=== PATIENT | female | born 1950 | race Caucasian/White ===

== ENCOUNTER 2023-09-18 06:09 | Day surgery (SDC) | payer OTHER, SELFPAY ==
[2023-09-07 10:24] LABS: Hematocrit 39.9 % (37.0-47.0); Hemoglobin 13.8 g/dL (12.0-16.0); Mean Corp Hgb Conc. 34.6 g/dL (33.0-37.0); Mean Corpuscular Hgb 29.7 pg (27.0-31.0); Mean Platelet Volume 10.4 fL (7.4-10.4); Platelet Count 291 10^3/uL (130-400); Red Blood Cell Count 4.64 10^6/uL (4.20-5.40); Red Cell Dist. Width 12.9 % (11.5-14.5); White Blood Cell Count 5.2 10^3/uL (4.8-10.8)
[2023-09-07 10:40] LABS: Blood Urea Nitrogen 26 mg/dl (7-17); Calcium 9.6 mg/dl (8.4-10.2); Carbon Dioxide 27 mmol/L (22-30); Chloride 103 mmol/L (98-107); Glucose 89 mg/dl (70-99); Potassium 4.6 mmol/L (3.5-5.1); Sodium 138 mmol/L (135-145); eGFR > 60.00
[2023-09-07 12:38] VITALS: BMI 29.4
[2023-09-18] VITALS (9 sets, daily range): BP systolic 110–143; BP diastolic 39–67; BMI 29.4
[2023-09-18] MEDS: NORMOSOL-R 1000 IV (07:11)
[2023-09-18] MEDS: Pyridium 200 MG PO (07:23)
== END 2023-09-18 11:10 | disposition home or self-care (01) ==
LOC: SDS 06:09
PROVIDERS: ATTENDING PHYSICIAN Obstetrics & Gynecology; FAMILY PHYSICIAN Family Medicine
DX: N39.3 Stress incontinence (female) (male) (principal); N36.41 Hypermobility of urethra
CPT/HCPCS: 57288; 36415; 80048; 85027; 86850; 86900; 86901; C1771; J1580

== ENCOUNTER 2023-09-21 23:22 | Emergency (ER) | payer OTHER, SELFPAY ==
[2023-09-21 23:30] VITALS: BP 156/62
--- NOTE | 2023-09-22 01:30 | ED.GENMED ---
History of Present Illness
<FLETCHER Hidalgo - Last Filed: 09/22/23 06:18>
General
Chief Complaint: Anal/Rectal Problem
Source: patient
Exam Limitations: none
Time Seen by Provider: 09/22/23 01:06
Nursing documentation reviewed up to this point in time: agreed with
Travel History
Have you had any contact with someone who has COVID-19?: No
Do you have any symptoms of coronavirus? Fever > 100 degrees, chills, cough, shortness of breath, sore throat, loss of taste or smell, muscle aches, or headache?: No
History of Present Illness
History of Present Illness:
This is a 73 year old female who presents to the ED c/o rectal pain and bleeding x 8 hours. Pt states she had a vaginal sling surgery 3 days ago. Around 5pm yesterday, she developed abrupt, cramping rectal pain that made her feel like she needed to
have a bowel movement. She only passed a small amount of nonbloody stool. Pt states she has continued to have intermittent, cramping rectal pain that comes and goes in waves, with only passage of a small amount of stool. Pt states around 4 hours
ago, she noticed streaks of blood in her underwear and pad. She also noticed blood when wiping her anal area. Pt took 5mg of oxycodone the day of the surgery, but has not had any since. She last took tylenol 1 day ago. She denies any fever, CP, SOB,
vomiting, lightheadedness, dizziness, dysuria, urinary retention or other changes in urination. Pt adds that she took senna the day of the surgery and the next day and she was able to have normal bowel movements with it.
Past History
<FLETCHER Hidalgo - Last Filed: 09/22/23 06:18>
Past History
ED Past Medical History: Arrthythmia (Atrial fibrillation), GERD and Hypothyroidism
ED Past Surgical History: Cardiac (Cardiac ablation)
Social History
Tobacco: Non-smoker
Alcohol: None
Drug: None
Personal:
Living: with family
Employment: Retired
Family History
Family History: Other (Noncontributory)
Review of Systems
<Geeta MelgarFLETCHER - Last Filed: 09/22/23 06:18>
Review of Systems
Allergies reviewed?: Yes
All Other Systems: ROS reviewed and negative except as documented in HPI and ROS
Constitutional: Reports no symptoms; Denies fever
EENT: Reports no symptoms
Respiratory: Reports no symptoms; Denies trouble breathing
Cardiac: Reports no symptoms; Denies chest pain
ABD/GI: Reports nausea and other (rectal pain and bleeding); Denies abdominal pain, vomiting, diarrhea or constipated
: Reports other (incisional pain and bruising); Denies dysuria or difficulty voiding
Musculoskeletal: Reports no symptoms
Skin: Reports no symptoms
Neurological: Reports no symptoms
Psychiatric: Reports no symptoms
Phy Exam
<Geeta GilesFLETCHER shahid - Last Filed: 09/22/23 06:18>
General Physical Exam
General Presentation: moderate distress
General age: appears stated age
General Skin: warm and dry
General Habitus: normal
General Mental: alert
General Hydration: appears well hydrated
ENT Exam
ENT Exam: neck supple, normocephalic and swallowing well
Cardiovascular Exam
Cardiovascular Exam: regular rate/rhythm, no edema, no murmur and normal peripheral pulses
Pulmonary Exam
Pulmonary Exam: lungs clear, no respiratory distress, no rales, no crackles, no rhonchi, no wheezing and no cough
Gastrointestinal Exam
Gastrointestinal Exam: normal bowel sounds, soft, non distended and tender (mild lower abdominal tenderness along surgical incision sites)
Rectal Exam: normal external exam, normal sphincter tone, no rectal mass, no stool and other (no lesions, masses, or lacerations along perianal area. There is no stool present in the rectum and there are no internal masses palpated. Streaks of blood
appreciated on underwear and pad.)
Guaiac Status: negative
Neurological Exam
Neurological Exam: alert and oriented x3
Musculoskeletal Exam
Musculoskeletal Exam: full ROM and no edema
Skin Exam
Skin Exam: normal color and warm/dry
Psychiatric Exam
Psychiatric Exam: normal mood/affect
Course
<FLETCHER Hidalgo - Last Filed: 09/22/23 06:18>
Orders/Labs/Results
Orders:
Orders
09/22/23 01:14
Bladder Scan- Treatment ONCE
09/22/23 01:53
0.9% Sodium Chloride 1000 ml [Nss] 1,000 ml IV BOLUS
HYDROmorphone [Dilaudid] 0.25 mg IV NOW STA
Lidocaine 2% [Lidocaine Uro-Jet 2%] 1 syringe TOPICAL NOW STA
09/22/23 02:12
Complete Blood Count/With Diff Urgent
Comprehensive Metabolic Panel Urgent
Urinalysis Reflex To Culture Urgent
Date Specimen was Collected: 09/22/23
Time Specimen was Collected: 02:00
09/22/23 03:02
CT Abd/pelvis W Iv Cont Urgent
Comment:
Reason For Exam: lower abd/rectal pain, rectal bleeding.
09/22/23 06:07
HYDROmorphone [Dilaudid] 0.25 mg IV NOW STA
LevoFLOXacin [Levaquin] 500 mg PO NOW STA
Abnormal Lab Results
09/22/23
02:12
Hct 35.8 L %
(37.0-47.0)
Absolute Monos (auto) 0.7 H 10^3/uL
(0.1-0.6)
Lymphocytes % 19.7 L %
(20.5-51.1)
Chloride 108 H mmol/L
(98-107)
BUN 24 H mg/dl
(7-17)
Urine Ketones 1+ A
(Negative)
09/22/23 02:12
09/22/23 02:12
Vital Signs
Initial and Last Documented VS:
Initial Vital Signs
Temp Pulse Resp BP Pulse Ox
98.6 F 72 16 156/62 97
09/21/23 23:30 09/21/23 23:30 09/21/23 23:30 09/21/23 23:30 09/21/23 23:30
Last Documented Vital Signs
Temp Pulse Resp BP Pulse Ox
98.6 F 72 16 148/58 95
09/21/23 23:30 09/21/23 23:30 09/21/23 23:30 09/22/23 06:18 09/22/23 03:21
<Dayana Chavira, DO - Last Filed: 09/22/23 06:40>
Orders/Labs/Results
Orders:
Orders
09/22/23 01:14
Bladder Scan- Treatment ONCE
09/22/23 01:53
0.9% Sodium Chloride 1000 ml [Nss] 1,000 ml IV BOLUS
HYDROmorphone [Dilaudid] 0.25 mg IV NOW STA
Lidocaine 2% [Lidocaine Uro-Jet 2%] 1 syringe TOPICAL NOW STA
09/22/23 02:12
Complete Blood Count/With Diff Urgent
Comprehensive Metabolic Panel Urgent
Urinalysis Reflex To Culture Urgent
Date Specimen was Collected: 09/22/23
Time Specimen was Collected: 02:00
09/22/23 03:02
CT Abd/pelvis W Iv Cont Urgent
Comment:
Reason For Exam: lower abd/rectal pain, rectal bleeding.
09/22/23 06:07
HYDROmorphone [Dilaudid] 0.25 mg IV NOW STA
LevoFLOXacin [Levaquin] 500 mg PO NOW STA
Abnormal Lab Results
09/22/23
02:12
Hct 35.8 L %
(37.0-47.0)
Absolute Monos (auto) 0.7 H 10^3/uL
(0.1-0.6)
Lymphocytes % 19.7 L %
(20.5-51.1)
Chloride 108 H mmol/L
(98-107)
BUN 24 H mg/dl
(7-17)
Urine Ketones 1+ A
(Negative)
09/22/23 02:12
09/22/23 02:12
Vital Signs
Initial and Last Documented VS:
Initial Vital Signs
Temp Pulse Resp BP Pulse Ox
98.6 F 72 16 156/62 97
09/21/23 23:30 09/21/23 23:30 09/21/23 23:30 09/21/23 23:30 09/21/23 23:30
Last Documented Vital Signs
Temp Pulse Resp BP Pulse Ox
98.6 F 72 16 148/58 95
09/21/23 23:30 09/21/23 23:30 09/21/23 23:30 09/22/23 06:18 09/22/23 03:21
<FLETCHER Hidalgo - Last Filed: 09/22/23 06:18>
*Critical Care Note
Total Time (30-74mins, 75-104mins- exclusive of procedures): Not Applicable
<Dayana Chavira DO - Last Filed: 09/22/23 06:40>
*Radiology
Radiology exam reviewed: radiology read reviewed
*Pulse Oximetry
Patient hypoxic: no
ED Attending Note
<FLETCHER Hidalgo - Last Filed: 09/22/23 06:18>
-
Portions of this chart may have been created with voice recognition software.� Occasional wrong word or��sound alike� substitutions may have occurred due to the inherent limitations of voice recognition software.
<Dayana Chavira, DO - Last Filed: 09/22/23 06:40>
ED Attending Note
Patient seen and examined by attending physician: Yes
I performed the substantive portion of visit, reviewed & personally made and approve the management plan that is documented in note by myself or LUCIO.: Yes
I performed a history and physical exam of patient and discussed management with resident, I reviewed resident's note and agree with documented findings and plan of care.: Yes
ED Attending Note:
73-year-old woman who underwent vaginal sling procedure September 18 due to urinary stress incontinence. Has been feeling well postoperatively until tonight around 4:30 PM when she developed moderate suprapubic discomfort as well as significant
rectal pressure and pain. Rectal pain comes and goes in waves as spasms feeling the need to have a bowel movement. She has passed a few small soft bowel movements since 4:30 PM with no improvement in pain which continues to come in waves of spasms
of rectal pain. Lower abdominal pain has improved.
After passing a few soft small bowel movements she has noticed some scant mucoid blood streaked around stool as well as blood streaking on her pad and bright red blood when wiping.
She has not had a fever nor chills. No difficulty urinating and believes she is emptying her bladder well.
She has not taken anything for pain since yesterday morning.
GENERAL: 73-year-old woman appears her stated age, awake and alert, pleasant, appears in mild distress related to discomfort.
EYE: anicteric
NECK: Supple, nontender, no meningismus, no significant adenopathy.
ENT: oral mucosa is moist. No rhinorrhea.
CARDIAC: Regular rate and rhythm. no murmur.
LUNGS: Clear breath sounds bilaterally, no acute respiratory distress, no wheezes/rales/rhonchi
ABDOMEN: Soft, nondistended, there is dark purple ecchymosis suprapubic region, minimal tenderness suprapubic region but bladder is not palpably distended. No gross blood at anal sphincter nor vaginal introitus.
Rectal exam reveals no masses, nontender, no palpable stool, no gross blood on gloved finger but scant mucoid bright red blood on Hemoccult card which is heme positive.
NEUROLOGICAL: Alert and oriented x3, no focal neuro deficits. Gait is steady.
SKIN: Warm and dry, normal color, skin intact. No rash.
MUSCULOSKELETAL: No C/C/E. peripheral pulses are full and equal b/l. No palpable tenderness.
PSYCH: Normal and appropriate interaction.
Concern for postoperative pain, postoperative focal bleeding, other consideration is lower GI bleed, constipation.
Bladder is not palpably distended but will check post void bladder scan to assess for urinary retention.
Will check labs and urinalysis.
Will medicate for pain with a small dose of IV Dilaudid and trial Uro-Jet rectally for tenesmus.
Will plan for CT abdomen pelvis with IV contrast.
09/22/2023 0635 AM
Patient has been resting comfortably with marked improvement in pain after Uro-Jet rectally and a small dose of IV Dilaudid.
CAT scan shows acute colitis and proctitis without obstruction or perforation. No fluid collection. This could certainly be postsurgical changes but must consider bacterial in nature thus we will treat with a 1 week course of Levaquin. Patient
has allergy to penicillins and metronidazole.
Recommend bland, soft diet, clear liquids.
Continue pain medications as prescribed by surgeon.
I have sent a [employer] text to her surgeon, Dr. Zhang, thus far have not received return text but patient is eager to be discharged to home. She has had no further rectal bleeding.
Prompt follow-up with urologic surgeon on Sunday for recheck.
Return precautions discussed.
Discharge Plan
Departure
Patient Disposition: Home (Routine Discharge)
Date of Disposition: 09/22/23
Time of Disposition: 06:37
Patient with high blood pressure during this ER visit?: No
Condition: Good
Discharge Problem:
acute proctitis/colitis, Colitis with rectal bleeding
Instructions: Bloody Stools, Adult (DC), Colitis (DC)
Prescriptions:
New
levofloxacin 500 mg tablet
500 mg PO DAILY 6 Days Qty: 6 0RF
No Action
celecoxib 200 MG capsule
200 mg PO DAILYPRN PRN (Reason: pain)
multivitamin Tablet
1 tab PO DAILY
acetaminophen 500 mg Tablet
500 mg PO Q6H PRN (Reason: pain)
levothyroxine [Synthroid] 100 mcg Tablet
100 mcg PO QHS
azelastine 137 mcg (0.1 %) Aerosol,[place]
1 spray INTRANASAL BID PRN (Reason: Post nasal drip)
rosuvastatin 5 mg Tablet
5 mg PO DAILY
cholecalciferol (vitamin D3) [Vitamin D3] 50 mcg (2,000 unit) Capsule
50 mcg PO DAILY
coQ10 (ubiquinol) 200 mg Capsule
300 mg PO DAILY
Prolia 60 mg/mL Syringe
60 mg SC [id number]
Rx Instructions:
next injection 04/2023
Probiotic 10 billion cell Capsule
10,000 mmu cells PO DAILY
calcium carbonate 500 mg calcium (1,250 mg) Tablet
250 mg PO DAILY
omeprazole 20 mg Tablet,Delayed Release (Dr/Ec)
20 mg PO PRN PRN (Reason: GERD)
Referrals:
Dunia Bay MD [Family Provider] -
Emir Zhang MD [Active] - Call in 1-3 days for appt
Interventions
Interventions:
*Risk Screen - Suicide Last Done: 09/21/23 23:30
*General Assessment Last Done: 09/21/23 23:30
*Neglect/Abuse Screening Last Done: 09/21/23 23:30
ED- Fall Risk Assessment Last Done: 09/21/23 23:30
*ED COVID-19 Vaccine History Last Done: 09/21/23 23:30
ED-Skin Assessment Last Done: 09/22/23 01:00
[2023-09-22] MEDS: DILAUDID 0.25 MG IV ×2 (02:18→06:14)
[2023-09-22 02:19] LABS: % Basophils 0.3 % (0-2); % Eosinophils 0.9 % (0-6); % Immature Granulocytes 0.3 % (0-0.5); % Lymphocytes 19.7 % (20.5-51.1); % Monocytes 7.7 % (1.7-9.3); % Neutrophils 71.1 % (42.2-75.2); Absolute Eosinophils 0.1 10^3/uL (0-0.7); Absolute Lymphocytes 1.7 10^3/uL (1.2-3.4); Absolute Monocytes 0.7 10^3/uL (0.1-0.6); Absolute Neutrophils 6.2 10^3/uL (1.4-6.5); Hematocrit 35.8 % (37.0-47.0); Hemoglobin 12.6 g/dL (12.0-16.0); Mean Corp Hgb Conc. 35.2 g/dL (33.0-37.0); Mean Corpuscular Hgb 29.6 pg (27.0-31.0); Mean Corpuscular Volume 84.2 fL (81.0-99.0); Mean Platelet Volume 10.1 fL (7.4-10.4); Nucleated Red Blood Cells % 0 %; Platelet Count 290 10^3/uL (130-400); Red Blood Cell Count 4.25 10^6/uL (4.20-5.40); Red Cell Dist. Width 13.2 % (11.5-14.5); White Blood Cell Count 8.7 10^3/uL (4.8-10.8)
[2023-09-22] MEDS: LIDOCAINE URO-JET 2% 1 SYRINGE TOPICAL (02:19)
[2023-09-22] MEDS: NSS 1000 IV (02:19)
[2023-09-22 02:24] VITALS: BP 136/59
[2023-09-22 03:00] VITALS: BP 141/63
[2023-09-22 03:08] LABS: ALT (SGPT) 24 U/L (0-35); AST (SGOT) 30 U/L (14-36); Albumin 4.1 g/dl (3.5-5.0); Alkaline Phosphatase 71 U/L (38-126); Blood Urea Nitrogen 24 mg/dl (7-17); Calcium 9.5 mg/dl (8.4-10.2); Carbon Dioxide 24 mmol/L (22-30); Chloride 108 mmol/L (98-107); Glucose 92 mg/dl (70-99); Sodium 138 mmol/L (135-145); Total Bilirubin 0.7 mg/dl (0.2-1.3); Total Protein 6.7 g/dl (6.3-8.2); eGFR > 60.00
[2023-09-22 03:19] LABS: Urine Albumin Negative (Neg - Trace); Urine Bilirubin Negative (Negative); Urine Character Clear (Clear); Urine Color Yellow; Urine Glucose Negative (Negative); Urine Ketone 1+ (Negative); Urine Leukocyte Negative (Negative); Urine Nitrite Negative (Negative); Urine Occult Blood Negative (Negative); Urine Urobilinogen Negative (Neg - 1+)
[2023-09-22] MEDS: LEVAQUIN 500 MG PO (06:14)
[2023-09-22 06:18] VITALS: BP 148/58
== END 2023-09-22 06:59 | disposition home or self-care (01) ==
LOC: EMR 23:22
PROVIDERS: EMERGENCY PHYSICIAN Emergency Medicine; FAMILY PHYSICIAN Family Medicine
DX: K62.89 Other specified diseases of anus and rectum (principal); K52.9 Noninfective gastroenteritis and colitis, unspecified; K62.5 Hemorrhage of anus and rectum; I48.91 Unspecified atrial fibrillation; K21.9 Gastro-esophageal reflux disease without esophagitis; E03.9 Hypothyroidism, unspecified
CPT/HCPCS: 99284; 96374; 96376; 96361; 74177; 80053; 81003; 85025; Q9967

== ENCOUNTER → 2023-10-02 10:24 | Outpatient (REF) | payer OTHER, SELFPAY ==
[2023-10-02 12:23] LABS: C-Reactive Protein < 5.00 mg/L (0.0-10.00)
[2023-10-02 12:43] LABS: Erythrocyte Sed Rate 11 mm/hour (0-20)
[2023-10-03 15:54] LABS: tTG IgA Antibody 6.5 EU/ml (0-19); tTG IgG Antibody 16.3 EU/ml (0-19)
[2023-10-04 00:53] LABS: IgA 140 mg/dl (70-400)
[2023-10-04 18:29] LABS: Endomysial IgA Antibody Titer <1:10 (<1:10)
== END ==
LOC: HWLAB 10:24
PROVIDERS: ATTENDING PHYSICIAN Internal Medicine; FAMILY PHYSICIAN Family Medicine
DX: R19.5 Other fecal abnormalities (principal)
CPT/HCPCS: 36415; 82784; 83516; 85652; 86140; 86231

== ENCOUNTER → 2023-10-03 09:39 | Outpatient (REF) | payer OTHER, SELFPAY ==
[2023-10-07 00:42] LABS: Calprotectin, Fecal 10 ug/g (<=49)
== END ==
LOC: HWLAB 09:39
PROVIDERS: ATTENDING PHYSICIAN Internal Medicine; FAMILY PHYSICIAN Family Medicine
DX: R19.5 Other fecal abnormalities (principal)
CPT/HCPCS: 83993; 87045; 87046; 87427

== ENCOUNTER → 2023-10-09 13:27 | Outpatient (REF) | payer OTHER, SELFPAY | LOC: DHCBC MAIN 13:27 | PROVIDERS: ATTENDING PHYSICIAN Internal Medicine Cardiovascular Disease; FAMILY PHYSICIAN Family Medicine | DX: I49.5 Sick sinus syndrome (principal); Z95.0 Presence of cardiac pacemaker | CPT/HCPCS: 93306 ==

== ENCOUNTER → 2023-10-12 13:02 | Outpatient (REF) | payer OTHER, SELFPAY | LOC: HWRAD 13:02 | PROVIDERS: ATTENDING PHYSICIAN Registered Nurse Ambulatory Care | DX: M25.512 Pain in left shoulder (principal) | CPT/HCPCS: 73030 ==

== ENCOUNTER → 2023-11-29 10:06 | Outpatient (REF) | payer OTHER, SELFPAY ==
[2023-11-29 12:21] LABS: ALT (SGPT) 20 U/L (0-35); AST (SGOT) 30 U/L (14-36); Albumin 4.3 g/dl (3.5-5.0); Alkaline Phosphatase 71 U/L (38-126); Blood Urea Nitrogen 23 mg/dl (7-17); Calcium 9.8 mg/dl (8.4-10.2); Carbon Dioxide 26 mmol/L (22-30); Chloride 105 mmol/L (98-107); Glucose 94 mg/dl (70-99); HDL Cholesterol 82 mg/dl; LDL Cholesterol, Calculated 79 mg/dl; Potassium 4.4 mmol/L (3.5-5.1); Sodium 139 mmol/L (135-145); Total Bilirubin 0.7 mg/dl (0.2-1.3); Total Cholesterol 175 mg/dl (50-199); Total Protein 6.7 g/dl (6.3-8.2); Triglyceride 70 mg/dl (10-149); Very Low Density Lipoprotein 14 mg/dl (0-30); eGFR > 60.00
[2023-11-29 12:54] LABS: TSH 2.47 uIU/ml (0.47-4.68)
== END ==
LOC: HWLAB 10:06
PROVIDERS: ATTENDING PHYSICIAN Family Medicine
DX: E78.2 Mixed hyperlipidemia (principal); E03.9 Hypothyroidism, unspecified; G47.62 Sleep related leg cramps
CPT/HCPCS: 36415; 80053; 80061; 83735; 84443

== ENCOUNTER → 2023-12-26 12:52 | Outpatient (REF) | payer OTHER, SELFPAY | LOC: WDC 12:52 | PROVIDERS: ATTENDING PHYSICIAN Family Medicine | DX: G47.62 Sleep related leg cramps (principal); Z12.31 Encounter for screening mammogram for malignant neoplasm of breast | CPT/HCPCS: 77063; 77067; 93922; 93925 ==

== ENCOUNTER → 2024-01-25 06:19 | Day surgery (SDC) | payer OTHER, SELFPAY | LOC: GI 06:19 | PROVIDERS: ATTENDING PHYSICIAN Internal Medicine | DX: Z12.11 Encounter for screening for malignant neoplasm of colon (principal); D12.3 Benign neoplasm of transverse colon; D12.5 Benign neoplasm of sigmoid colon; K57.30 Diverticulosis of large intestine without perforation or abscess without bleeding; K64.9 Unspecified hemorrhoids; Z86.010 Personal history of colon polyps; Z98.0 Intestinal bypass and anastomosis status | CPT/HCPCS: 45380; 88305 ==

== ENCOUNTER → 2024-02-08 13:42 | Outpatient (REF) | payer OTHER, SELFPAY | LOC: MRI 13:42 | PROVIDERS: ATTENDING PHYSICIAN Orthopaedic Surgery; FAMILY PHYSICIAN Family Medicine | DX: M25.512 Pain in left shoulder (principal) | CPT/HCPCS: 71046; 73221 ==

== ENCOUNTER → 2024-05-05 09:07 | Outpatient (REF) | payer OTHER, SELFPAY ==
[2024-05-05 12:14] LABS: % Basophils 0.3 % (0-2); % Eosinophils 1.4 % (0-6); % Immature Granulocytes 0.5 % (0-0.5); % Lymphocytes 21.3 % (20.5-51.1); % Monocytes 9.1 % (1.7-9.3); % Neutrophils 67.4 % (42.2-75.2); Absolute Eosinophils 0.1 10^3/uL (0-0.7); Absolute Lymphocytes 1.4 10^3/uL (1.2-3.4); Absolute Monocytes 0.6 10^3/uL (0.1-0.6); Absolute Neutrophils 4.3 10^3/uL (1.4-6.5); Hematocrit 38.7 % (37.0-47.0); Mean Corp Hgb Conc. 33.6 g/dL (33.0-37.0); Mean Corpuscular Volume 86.4 fL (81.0-99.0); Mean Platelet Volume 10.5 fL (7.4-10.4); Nucleated Red Blood Cells % 0 %; Platelet Count 284 10^3/uL (130-400); Red Blood Cell Count 4.48 10^6/uL (4.20-5.40); Red Cell Dist. Width 13.1 % (11.5-14.5); White Blood Cell Count 6.4 10^3/uL (4.8-10.8)
[2024-05-05 12:28] LABS: ALT (SGPT) 40 U/L (0-35); AST (SGOT) 40 U/L (14-36); Albumin 4.2 g/dl (3.5-5.0); Alkaline Phosphatase 63 U/L (38-126); Blood Urea Nitrogen 23 mg/dl (7-17); Calcium 9.2 mg/dl (8.4-10.2); Carbon Dioxide 27 mmol/L (22-30); Chloride 104 mmol/L (98-107); Glucose 93 mg/dl (70-99); HDL Cholesterol 81 mg/dl; LDL Cholesterol, Calculated 110 mg/dl; Potassium 4.5 mmol/L (3.5-5.1); Sodium 142 mmol/L (135-145); Total Bilirubin 0.5 mg/dl (0.2-1.3); Total Cholesterol 208 mg/dl (50-199); Total Protein 6.5 g/dl (6.3-8.2); Triglyceride 88 mg/dl (10-149); Very Low Density Lipoprotein 17 mg/dl (0-30); eGFR > 60.00
[2024-05-05 12:53] LABS: TSH Reflex To Free T4 2.04 uIU/ml (0.47-4.68)
== END ==
LOC: HWLAB 09:07
PROVIDERS: ATTENDING PHYSICIAN Family Medicine
DX: E78.2 Mixed hyperlipidemia (principal); E03.9 Hypothyroidism, unspecified; R73.01 Impaired fasting glucose
CPT/HCPCS: 36415; 80053; 80061; 84443; 85025

== ENCOUNTER → 2024-05-16 13:05 | Outpatient (REF) | payer OTHER, SELFPAY | LOC: HWRAD 13:05 | PROVIDERS: ATTENDING PHYSICIAN Registered Nurse | DX: R20.2 Paresthesia of skin (principal) | CPT/HCPCS: 72040 ==

== ENCOUNTER → 2024-06-09 10:19 | Outpatient (REF) | payer OTHER, SELFPAY ==
[2024-06-09 12:30] LABS: ALT (SGPT) 25 U/L (0-35); AST (SGOT) 28 U/L (14-36); Albumin 4.5 g/dl (3.5-5.0); Alkaline Phosphatase 66 U/L (38-126); Blood Urea Nitrogen 20 mg/dl (7-17); Calcium 9.7 mg/dl (8.4-10.2); Carbon Dioxide 30 mmol/L (22-30); Chloride 100 mmol/L (98-107); Glucose 61 mg/dl (70-99); Potassium 4.6 mmol/L (3.5-5.1); Sodium 141 mmol/L (135-145); Total Bilirubin 0.6 mg/dl (0.2-1.3); Total Protein 6.6 g/dl (6.3-8.2); eGFR > 60.00
[2024-06-09 12:51] LABS: Vitamin D, 25-OH*** 47.1 ng/mL (30-80)
== END ==
LOC: HWLAB 10:19
PROVIDERS: ATTENDING PHYSICIAN Internal Medicine Rheumatology; FAMILY PHYSICIAN Family Medicine
DX: E55.9 Vitamin D deficiency, unspecified (principal); M81.0 Age-related osteoporosis without current pathological fracture
CPT/HCPCS: 36415; 80053; 82306

== ENCOUNTER 2024-07-10 06:23 | Day surgery (SDC) | payer OTHER, SELFPAY | END 2024-07-10 13:48 | disposition home or self-care (01) | LOC: GI 06:23 | PROVIDERS: ATTENDING PHYSICIAN Internal Medicine; FAMILY PHYSICIAN Family Medicine | DX: K29.60 Other gastritis without bleeding (principal); Q39.9 Congenital malformation of esophagus, unspecified; K44.9 Diaphragmatic hernia without obstruction or gangrene; K30 Functional dyspepsia; R14.0 Abdominal distension (gaseous); R68.81 Early satiety; R11.0 Nausea | CPT/HCPCS: 43239; 88305; 88342 ==

== ENCOUNTER → 2024-08-29 10:57 | Outpatient (REF) | payer OTHER, SELFPAY ==
[2024-08-29 13:02] LABS: ALT (SGPT) 27 U/L (0-35); AST (SGOT) 34 U/L (14-36); Albumin 4.1 g/dl (3.5-5.0); Alkaline Phosphatase 85 U/L (38-126); Blood Urea Nitrogen 30 mg/dl (7-17); Calcium 9.3 mg/dl (8.4-10.2); Carbon Dioxide 28 mmol/L (22-30); Chloride 102 mmol/L (98-107); Glucose 83 mg/dl (70-99); Potassium 4.7 mmol/L (3.5-5.1); Sodium 135 mmol/L (135-145); Total Bilirubin 0.6 mg/dl (0.2-1.3); Total Protein 6.7 g/dl (6.3-8.2); eGFR > 60.00
[2024-08-29 14:03] LABS: Folate 12.2 ng/ml (2.76-20); Vitamin B12 520 pg/ml (239-931)
== END ==
LOC: HWLAB 10:57
PROVIDERS: ATTENDING PHYSICIAN Family Medicine; FAMILY PHYSICIAN Family Medicine
DX: R74.01 Elevation of levels of liver transaminase levels (principal); R20.2 Paresthesia of skin
CPT/HCPCS: 36415; 80053; 82607; 82746

== ENCOUNTER → 2024-10-07 08:14 | Outpatient (REF) | payer OTHER, SELFPAY | LOC: HWRCS 08:14 | PROVIDERS: ATTENDING PHYSICIAN Internal Medicine Cardiovascular Disease; FAMILY PHYSICIAN Family Medicine | DX: I48.0 Paroxysmal atrial fibrillation (principal); Z95.0 Presence of cardiac pacemaker; R07.89 Other chest pain | CPT/HCPCS: 78452; 93017; A9500; J2785 ==

== ENCOUNTER → 2025-01-17 14:19 | Outpatient (REF) | payer OTHER, SELFPAY | LOC: WDC 14:19 | PROVIDERS: ATTENDING PHYSICIAN Family Medicine | DX: Z12.31 Encounter for screening mammogram for malignant neoplasm of breast (principal) | CPT/HCPCS: 77063; 77067 ==

== ENCOUNTER → 2025-03-27 08:16 | Outpatient (REF) | payer OTHER, SELFPAY | LOC: HWRAD 08:16 | PROVIDERS: ATTENDING PHYSICIAN Physician Assistant; FAMILY PHYSICIAN Family Medicine | DX: M81.0 Age-related osteoporosis without current pathological fracture (principal) | CPT/HCPCS: 77080 ==